=== PATIENT | male | born 1985 | race Caucasian/White ===

== ENCOUNTER 2018-12-11 21:26 | Inpatient (IN) ==
[2018-12-11 22:21] LABS: AGAP 13; ALB/GLOB RATIO 1.1; ALKALINE PHOSPHATASE 38 U/L (32-122); BUN 15 mg/dL (8-22); CALCIUM 9.1 mg/dL (8.8-10.2); CHLORIDE 101 mmol/L (98-107); COSMO 278; CREATININE 0.6 mg/dL (0.7-1.2); ESTIMATED GFR > 60; GLUCOSE 132 mg/dL (70-104); GOT 10 U/L (10-34); GPT 7 U/L (10-44); POTASSIUM 3.9 mmol/L (3.5-5.1); SODIUM 138 mmol/L (136-145); TCO2 24 mmol/L (25-35); TOTAL BILIRUBIN 0.32 mg/dL (0.20-1.00); TOTAL PROTEIN 7.5 g/dL (6.3-8.3)
[2018-12-11 22:24] LABS: BASO# 0.09 X1000 (0.0-0.2); BASO% 0.6 % (0.0-0.8); EOS# 0.12 X1000 (0.0-0.7); EOS% 0.8 % (0.0-10.0); HEMATOCRIT 19.8 % (42.0-52.0); IMM GRAN# 0.04 X1000 (0.0-0.04); IMM GRAN% 0.3 % (0.0-0.5); LYMPH# 1.44 X1000 (1.2-3.4); MCH 15.2 PG (27-31); MCHC 24.7 g/dL (33-37); MCV 61.5 FL (81-99); MONO# 1.29 X1000 (0.11-0.59); MONO% 8.1 % (1.7-9.3); MPV 9.2 FL (7.4-10.4); NEUT# 12.94 X1000 (1.4-6.5); NEUT% 81.2 % (42.2-75.2); PLT 560 X1000 (130-400); RBC 3.22 XMIL (4.7-6.1); RDW 21.7 % (11.5-14.5); WBC 15.92 X1000 (4.8-10.8)
[2018-12-11 22:27] LABS: HEMOGLOBIN 4.9 g/dL (14.0-18.0)
[2018-12-11] MEDS ORDERED: NS 1,000 ML ONE (23:17)
[2018-12-11 23:22] LABS: IRON SATURATION 2 %; TIBC 427 ug/dL
[2018-12-11 23:33] LABS: TOTAL IRON 8 ug/dL (53-167); UNBOUND IRON 419 ug/dL (112-346)
--- NOTE | 2018-12-11 23:57 | PROVIDER DOCUMENTATION ---
This chart was entered by Ellie Maier Scribe, acting as scribe for Marcy Garcia MD. HPI-General Adult - General Chief Complaint: Abnormal Lab[s] Stated Complaint: RETURN PER DR Time Seen by Provider: 12/11/18 21:59 Source: patient Allergies/Adverse Reactions: Patient Allergies Allergy/AdvReac Type Severity Reaction Status Date / Time Penicillins Allergy Mild RASH Verified 12/11/18 23:17 Home Medications: Home Medication List Medication Instructions Recorded Confirmed Last Taken Type Pregabalin [Lyrica] 100 mg PO HS 02/02/12 06/06/18 03/22/17 21:00 History 100 mg Fentanyl 25 Microgm/Hr Patch 25 mcg TD Q72H 03/23/17 06/06/18 03/23/17 09:00 History [Duragesic 25 Microgm/Hr Patch] 25mcg Rivaroxaban [Xarelto] 20 mg PO DAILY 03/23/17 06/06/18 03/23/17 01:00 History 20mg Folic Acid 1 mg PO DAILY #30 tablet 03/29/17 06/06/18 Unknown Rx Sucralfate [Carafate Liquid] 1 gm PO Q6HR #1 udc 03/29/17 06/06/18 Unknown Rx Esomeprazole [Nexium] 40 mg PO DAILY 06/06/18 06/06/18 Unknown History Hydrocodone/Acetaminophen 1 tab PO 4XDAY 06/06/18 06/06/18 Unknown History [Hydrocodone-Acetamin 10-325 mg] - History of Present Illness -Gen Adult Nature of Presenting Problems: pt is a 33 yr old male presenting with report of abnormal labs. pt reports he was seen by PCP this AM and had labs drawn, PCP called this evening and told him his hemoglobin was 4.3 and he needed to come to ER for blood transfusion. pt reports he has not noticed any bleeding, admits he is on Xarelto for bilateral blood clots, followed by Dr Suh. pt is paraplegic and self caths daily. pt does admits hx of same approx 8 yrs ago. pt denies any complaints Location of Pain/Injury: reports: none Pain Radiation: reports: no radiation Quality of Pain: reports: none Onset/Duration: reports: unsure Timing: reports: still present Modifying Factors: improves with: nothing Associated Symptoms: denies: back/neck pain, chest pain, dizziness, fatigue, fever/chills, nausea, shortness of breath, vomiting, weakness Similar Symptoms Previously?: Yes Recently seen or treated by another doctor?: Yes Review of Systems - Adult - REVIEW OF SYSTEMS - ADULT Constitutional: denies: fever, fatique Eyes: reports: no symptoms reported Ears, Nose, Mouth & Throat: reports: no symptoms reported Cardiovascular: denies: chest pain, palpitations, syncope Respiratory: denies: shortness of breath Gastrointestinal: denies: abdominal pain, constipation, diarrhea, nausea, rectal bleeding, vomiting Genitourinary: reports: no symptoms reported Musculoskeletal: reports: no symptoms reported Integumentary: reports: no symptoms reported Neurological: denies: dizziness/vertigo, headache/migraines, syncope Psychiatric: reports: no symptoms reported Endocrine: reports: no symptoms reported Hematologic/Lymphatic: reports: no symptoms reported Allergic/Immunologic: reports: no symptoms reported All Other Systems: Reviewed and Negative Past History - Adult - PAST MEDICAL HISTORY-ADULT Review of Records: reports: Old Records Reviewed, Nursing Assessment Review, Medications Reviewed, Social history reviewed & non-contributory. Major Childhood Illnesses: reports: denies history Cardiovascular: reports: denies history Respiratory: reports: denies history Gastrointestinal: reports: denies history Obstetrical/Gynecological: reports: denies history Genitourinary: reports: denies history Musculoskeletal: reports: denies history Neurological: reports: denies history Endocrine/Immune: reports: denies history Other Conditions: reports: denies history - IMMUNIZATION STATUS Childhood Immunizations: See Nurse Assessment Flu Vaccine: See Nurse Assessment - FAMILY HISTORY Family History: reviewed, not pertinent - SOCIAL HISTORY Smoking: quit greater than 1 year Living Situation: family Physical Exam-General - CONSTITUTIONAL General Appearance: appears well, alert, no apparent distress - EYES Eyes: PERRL/EOMI, pale conjunctivae - HEAD, EARS, NOSE, MOUTH & THROAT HENMT: normocephalic/atraumatic - NECK Neck: supple, normal inspection - RESPIRATORY Respiratory: chest non-tender, lungs clear, normal breath sounds, no respiratory distress, no accessory muscle use - CARDIOVASCULAR Cardiovascular: normal peripheral pulses, tachycardia - GASTROINTESTINAL (ABDOMEN) Abdominal Exam: normal bowel sounds, non tender, soft - MUSCULOSKELETAL Back Exam: normal inspection Extremity: normal inspection - SKIN Integumentary: normal turgor, warm/dry, pallor (pale) - NEUROLOGIC Neurologic: other (RLE weakness) - PSYCHIATRIC Psych/Mental Status: normal mood/affect, oriented x 3 Progress - PLAN OF CARE/RESULTS Progress/Plan/Lab Results: Vital Signs - 8 hr 12/11/18 21:31 Temperature 98.3 F Pulse Rate 121 H Respiratory Rate 16 Blood Pressure 102/56 O2 Sat by Pulse Oximetry 100 Laboratory Results - last 24 hr 12/11/18 12/11/18 21:48 21:48 WBC 15.92 H RBC 3.22 L Hgb 4.9 L* Hct 19.8 L MCV 61.5 L MCH 15.2 L MCHC 24.7 L RDW Std Deviation 21.7 H Plt Count 560 H MPV 9.2 Immature Gran % (Auto) 0.3 Neut % (Auto) 81.2 H Lymph % (Auto) 9.0 L [place] % (Auto) 8.1 Eos % (Auto) 0.8 Baso % (Auto) 0.6 Immature Gran # (Auto) 0.04 Neut # (Auto) 12.94 H Lymph # (Auto) 1.44 [place] # (Auto) 1.29 H Eos # (Auto) 0.12 Baso # (Auto) 0.09 Sodium 138 Potassium 3.9 Chloride 101 Carbon Dioxide 24 L Anion Gap 13 BUN 15 Creatinine 0.6 L Estimated GFR/1.73 m2 > 60 BUN/Creatinine Ratio 25 Glucose 132 H Calculated Osmolality 278 Calcium 9.1 Total Bilirubin 0.32 AST 10 ALT 7 L Alkaline Phosphatase 38 Total Protein 7.5 Albumin 4.0 Globulin 3.5 Albumin/Globulin Ratio 1.1 Orders Category Date Time Status Transfuse .Give-Transfuse Care 12/11/18 22:27 Active CBC WITH ELECTRONIC DIFF [HEME] Stat Lab 12/11/18 21:48 Completed COMPREHENSIVE METABOLIC PANEL [CHEM] Stat Lab 12/11/18 21:48 Completed FERRITIN Stat Lab 12/11/18 22:28 Ordered FOLATE Stat Lab 12/11/18 22:28 Ordered PRBC [LRPC (RED CELLS)] [BBK] Stat Lab 12/11/18 22:27 Uncollected TYPE & SCREEN [BBK] Stat Lab 12/11/18 21:48 Results UIBC W TOTAL IRON [CHEM] Stat Lab 12/11/18 22:28 Uncollected VITAMIN B12 Stat Lab 12/11/18 22:28 Uncollected Result Diagrams: 12/11/18 21:48 12/11/18 21:48 - CONSULTS/PCP/HOSPITALIST Notification #1 *Consult/PCP/Hospitalist*: Dr Acevedo Time Discussed: 22:45 Reason/Comments: discussed plan of care for pt admit Consult Disposition: Admit Departure - Departure Date of Disposition Decision: 12/11/18 Time of Disposition Decision: 22:45 DIAGNOSIS: Acute anemia Disposition: ADMITTED INPATIENT 09 Certified Medical Emergency: Emergent Condition: Stable Referrals and Follow-Ups: Ruth Toussaint MD [Primary Care Provider] - - Critical Care Note This patient required my direct & personal management of CC.: Yes Total Time (mins): 35 Critical Care Statement: This patient required my direct personal management to treat or rule out processes, the absence of which, could potentiallly result in sudden, clinically significant life or limb threatening deterioration. Attestation - Physician/ CJ Attestation Patient care was provided by Advanced Practice Provider:: No The physician spent face to face time with patient:: Yes Advanced Practice Provider documentation review:: Supervising physician onsite and consulted in the evaluation and care of this patient. The physician did have a face to face encounter with the patient. This chart was documented by the indicated scribe, (Ellie Maier Scribe) and accurately reflects the services I performed and decisions made by me, Marcy Garcia MD, as attested by the provider's signature.
[2018-12-12] MEDS ORDERED: ZOFRAN IV PRN (01:13)
[2018-12-12] MEDS ORDERED: VANCOMYCIN IV PER PHARMACY MISC SCH (01:13)
[2018-12-12 01:53] LABS: URINE SOURCE CATH
[2018-12-12 02:05] LABS: BILIRUBIN URINE NEGATIVE (NEGATIVE); BLOOD URINE SMALL (NEGATIVE); COLOR YELLOW; GLUCOSE URINE NEGATIVE (NEGATIVE); KETONE URINE NEGATIVE (NEGATIVE); LEUKOCYTES URINE SMALL (NEGATIVE); NITRITE URINE POSITIVE (NEGATIVE); PROTEIN URINE TRACE mg/dL (NEGATIVE); SP GRAVITY URINE 1.029; TURBIDITY URINE CLEAR (CLEAR); UROBILINOGEN URINE 3 mg/dL (NORMAL)
[2018-12-12 02:07] LABS: UR EPITHELIAL CELLS <10 /HPF (<10); URINE BACTERIA 4+ /HPF; URINE RBC <10 /HPF (<10)
[2018-12-12] MEDS: MAXIPIME 1 GM in NS 50 ML IV SCH ×2 (02:16→12:20)
[2018-12-12] MEDS: PROTONIX IV SCH ×2 (02:17→12:21)
[2018-12-12] MEDS: MORPHINE IV PRN ×5 (02:17→22:12)
[2018-12-12] MEDS ORDERED: NS 250 ML ONE ×2 (02:19→20:13)
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
[2018-12-12] MEDS ORDERED: VANCOMYCIN 2,450 MG in NS 500 ML IV ONE (03:00)
[2018-12-12 06:20] LABS: BASO# 0.14 X1000 (0.0-0.2); BASO% 1.1 % (0.0-0.8); EOS# 0.36 X1000 (0.0-0.7); EOS% 2.7 % (0.0-10.0); HEMATOCRIT 23.6 % (42.0-52.0); HEMOGLOBIN 6.3 g/dL (14.0-18.0); IMM GRAN# 0.03 X1000 (0.0-0.04); IMM GRAN% 0.2 % (0.0-0.5); LYMPH# 2.47 X1000 (1.2-3.4); LYMPH% 18.8 % (20.5-51.1); MCH 17.7 PG (27-31); MCHC 26.7 g/dL (33-37); MCV 66.3 FL (81-99); MONO# 1.44 X1000 (0.11-0.59); MONO% 10.9 % (1.7-9.3); MPV 9.1 FL (7.4-10.4); NEUT# 8.73 X1000 (1.4-6.5); NEUT% 66.3 % (42.2-75.2); PLT 472 X1000 (130-400); RBC 3.56 XMIL (4.7-6.1); RDW 24.6 % (11.5-14.5); WBC 13.17 X1000 (4.8-10.8)
[2018-12-12 06:25] LABS: URINE SOURCE CATH
[2018-12-12 06:28] LABS: BILIRUBIN URINE NEGATIVE (NEGATIVE); BLOOD URINE TRACE (NEGATIVE); COLOR YELLOW; GLUCOSE URINE NEGATIVE (NEGATIVE); KETONE URINE NEGATIVE (NEGATIVE); LEUKOCYTES URINE NEGATIVE (NEGATIVE); NITRITE URINE POSITIVE (NEGATIVE); PROTEIN URINE TRACE mg/dL (NEGATIVE); SP GRAVITY URINE 1.028; TURBIDITY URINE CLEAR (CLEAR); UROBILINOGEN URINE 2 mg/dL (NORMAL)
[2018-12-12 06:30] LABS: UR EPITHELIAL CELLS <10 /HPF (<10); URINE BACTERIA NEGATIVE /HPF; URINE RBC <10 /HPF (<10); URINE WBC <10 /HPF (<10)
[2018-12-12 06:34] LABS: AGAP 8; ALB/GLOB RATIO 1.2; ALBUMIN 3.6 g/dL (3.5-5.0); ALKALINE PHOSPHATASE 35 U/L (32-122); BUN 14 mg/dL (8-22); CHLORIDE 99 mmol/L (98-107); COSMO 262; CREATININE 0.6 mg/dL (0.7-1.2); ESTIMATED GFR > 60; GLUCOSE 103 mg/dL (70-104); GOT 9 U/L (10-34); GPT 7 U/L (10-44); POTASSIUM 3.6 mmol/L (3.5-5.1); SODIUM 130 mmol/L (136-145); TCO2 23 mmol/L (25-35); TOTAL BILIRUBIN 0.72 mg/dL (0.20-1.00); TOTAL PROTEIN 6.6 g/dL (6.3-8.3)
--- NOTE | 2018-12-12 07:17 | Diag Imaging Result Doc PS360 ---
EXAM: CHEST-PORTABLE INDICATION: fever TECHNIQUE: One view COMPARISON: 03/27/2017 FINDINGS: The lungs are grossly clear. There is no discrete pleural fluid collection or pneumothorax. The cardiomediastinal silhouette and central vasculature are grossly unremarkable. IMPRESSION: No evidence of acute pathology by plain radiograph. Electronically signed by Brody Meneses 12/12/2018 7:15 AM
--- NOTE | 2018-12-12 07:26 | Diag Imaging Result Doc PS360 ---
EXAM: FOOT COMPLETE RIGHT INDICATION: R/o osteo TECHNIQUE: 3 views COMPARISON: None. FINDINGS: The bones are diffusely osteopenic. No discrete bony erosions are identified to indicate osteomyelitis by plain radiograph on the current study. There is no discrete fracture, dislocation, or significant intrinsic osseous lesion. There is soft tissue edema around the foot. Consider cellulitis. IMPRESSION: Osteopenia and soft tissue edema but no discrete bony erosion to indicate osteomyelitis by plain radiograph. Electronically signed by Brody Meneses 12/12/2018 7:24 AM
--- NOTE | 2018-12-12 07:31 | Diag Imaging Result Doc PS360 ---
EXAM: FOOT COMPLETE LEFT INDICATION: r/o osteo TECHNIQUE: 3 views COMPARISON: None. FINDINGS: The bones are diffusely osteopenic. No discrete focal bony erosion is identified to indicate osteomyelitis by plain radiograph on the current study. There is no discrete fracture, dislocation, or significant intrinsic osseous lesion, otherwise. There is soft tissue edema around the foot. IMPRESSION: Soft tissue edema and diffuse osteopenia but nothing that would necessarily indicate osteomyelitis by plain radiograph on the current study. Electronically signed by Brody Meneses 12/12/2018 7:29 AM
--- NOTE | 2018-12-12 07:33 | EKG Report ---
Test Performed on : 12/12/2018 06:46:01 AM Test Reason : chest pain Blood Pressure : / mmHG Vent. Rate : 101 BPM Atrial Rate : 101 BPM P-R Int : 116 ms QRS Dur : 088 ms QT Int : 354 ms P-R-T Axes : 041 048 008 degrees QTc Int : 459 ms Sinus tachycardia. Otherwise normal ECG When compared with ECG of 23-MAR-2017 15:04, No significant change was found Confirmed by Freda LINDER, Ricco Damian ([id number]) on 12/13/2018 8:58:26 AM
--- NOTE | 2018-12-12 07:47 | Diag Imaging Result Doc PS360 ---
EXAM: CHEST-PORTABLE INDICATION: FU TECHNIQUE: One view COMPARISON: 12/12/2018 FINDINGS: The lungs remain grossly clear. No new consolidation is identified. Cardiac silhouette is stable. IMPRESSION: Stable chest. Electronically signed by Brody Meneses 12/12/2018 7:44 AM
[2018-12-12] MEDS ORDERED: NS 500 ML IV ONE (08:06)
[2018-12-12] MEDS: SANTYL OINT TOP SCH (12:20)
[2018-12-12] MEDS: SODIUM CHLORIDE 0.9% INJ SCH (12:21)
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
[2018-12-12 12:40] LABS: HEMOGLOBIN 6.6 g/dL (14.0-18.0)
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
[2018-12-12] MEDS ORDERED: DIPRIVAN 1% ONE (13:35)
--- NOTE | 2018-12-12 14:14 | ENDOSCOPY OPERATIVE NOTE ---
[facility] ENDOSCOPY OPERATIVE NOTE , EGD PROCEDURE REPORT PATIENT: Darci Burnette ADMISSION DATE: 12/12/2018 MR#: [id number] : 1985 PROCEDURE DATE: 12/12/2018 SURGEON: Barrera Booker MD STATUS: inpatient VARNISH SUPERVISOR: Yari Clrake and Mary Manzano PREOPERATIVE DIAGNOSIS: The patient is a 33 yr old male here for an EGD due to hematemesis and acute post hemorrhagic anemia. PROCEDURE PERFORMED: EGD w/ biopsy MEDICATIONS: Per Anesthesia TOPICAL ANESTHETIC: none CONSENT: The patient understands the risks and benefits of the procedure and understands that these r isks include, but are not limited to: sedation, allergic reaction, infection, perforation and/or bleeding. Alternative means of evaluation and treatment include, among others: physical exam, x-rays, and/or surgical intervention. The patient elects to proceed with this endoscopic procedure. HISORY AND PHYSICAL: 12/12/2018 DESCRIPTION OF PROCEDURE: During intra-op preparation period all mechanical and medical equipment was checked for proper function. Hand hygiene and appropriate measures for infection prevention was taken. After the risks, benefits and alternatives of the procedure were thoroughly explained, Informed consent was verified, confirmed and timeout was successfully executed by the treatment team. The patient was anesthetized with topical anesthesia and the [id number] ([id number]) endoscope was introduced through the mouth and advanced to the second portion of the duoden um. Retroflexion was performed in the stomach and revealed no abnormalities. The gastroscope was then slowly withdraw n and removed. ESOPHAGUS: Severe reflux esophagitis was found 29 cm from the incisors. Esophagitis was LA Class D: Mucosal breaks involving more than 75% of esophageal circumference. Multiple biopsies were performed using cold for ceps. Sample sent for histology. The esophagus was otherwise normal. STOMACH: The mucosa of the stomach appeared normal. DUODENUM: The duodenal mucosa showed no abnormalities. SPECIMENS REMOVED: No ADVERSE EVENTS: There were no complications. POSTOPERATIVE DIAGNOSIS: 1. Reflux esophagitis 29 cm from the incisors; multiple biopsies were p erformed 2. The esophagus was otherwise normal 3. The mucosa of the stomach appeared normal 4. The duodenal mucosa showed no abnormalities RECOMMENDATIONS: 1. Resume pre-procedure medications 2. Follow-up biopsy results in 2 weeks 3. Follow up with referring physician 4. Transfer to ICU REPEAT EXAM: Barrera Booker MD eSigned: Barrera Bokoer MD 12/12/2018 2:13 PM cc: Ruth Toussaint MD PATIENT NAME: Darci Burnette MR#: [id number]
[2018-12-12] MEDS: CARAFATE LIQUID PO SCH (16:18)
[2018-12-12 18:17] LABS: HEMOGLOBIN 6.4 g/dL (14.0-18.0)
[2018-12-12] MEDS: FOLIC ACID PO SCH (20:08)
[2018-12-12] MEDS: LYRICA PO SCH (20:08)
[2018-12-12] MEDS: OFIRMEV 1000 MG/ISOTONIC SOLN 1,000 MG/100 ML BOTTLE IV PRN (20:16)
[2018-12-12] MEDS ORDERED: LYRICA PO SCH (21:00)
[2018-12-12 21:21] LABS: HEMOGLOBIN 6.5 g/dL (14.0-18.0)
[2018-12-12] MEDS: VANCOMYCIN 1,800 MG in NS 500 ML IV SCH (21:53)
[2018-12-12] MEDS: NS 500 ML IV ONE (22:02)
[2018-12-13] MEDS: PROTONIX IV SCH ×2 (01:14→14:08)
[2018-12-13] MEDS: MAXIPIME 1 GM in NS 50 ML IV SCH (01:14)
[2018-12-13] MEDS: MORPHINE IV PRN ×5 (03:31→20:45)
[2018-12-13] MEDS: OFIRMEV 1000 MG/ISOTONIC SOLN 1,000 MG/100 ML BOTTLE IV PRN ×2 (03:46→11:00)
[2018-12-13] MEDS: CARAFATE LIQUID PO SCH ×3 (06:07→16:37)
[2018-12-13 07:07] LABS: RETIC% 1.36 % (0.8-2.1); RETIC-HE 16.5 PG (28.2-36.6)
[2018-12-13 07:10] LABS: AGAP 12; ALB/GLOB RATIO 1.2; ALBUMIN 3.8 g/dL (3.5-5.0); ALKALINE PHOSPHATASE 37 U/L (32-122); BUN 11 mg/dL (8-22); CALCIUM 8.4 mg/dL (8.8-10.2); CHLORIDE 101 mmol/L (98-107); COSMO 271; CREATININE 0.6 mg/dL (0.7-1.2); ESTIMATED GFR > 60; GLUCOSE 101 mg/dL (70-104); GOT 11 U/L (10-34); GPT 7 U/L (10-44); POTASSIUM 3.5 mmol/L (3.5-5.1); SODIUM 136 mmol/L (136-145); TCO2 23 mmol/L (25-35); TOTAL PROTEIN 7.1 g/dL (6.3-8.3)
[2018-12-13 07:13] LABS: HEMATOCRIT 25.3 % (42.0-52.0); MCH 19.2 PG (27-31); MCHC 27.7 g/dL (33-37); MCV 69.3 FL (81-99); MPV 9.7 FL (7.4-10.4); RBC 3.65 XMIL (4.7-6.1); RDW 26.2 % (11.5-14.5); WBC 8.08 X1000 (4.8-10.8)
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
[2018-12-13] MEDS: LYRICA PO SCH ×2 (08:11→20:42)
[2018-12-13] MEDS: SANTYL OINT TOP SCH (08:11)
[2018-12-13] MEDS: FOLIC ACID PO SCH ×2 (08:11→20:42)
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
[2018-12-13] MEDS: SODIUM CHLORIDE 0.9% INJ SCH (14:08)
[2018-12-13] MEDS: MAXIPIME 2 GM in NS 100 ML IV SCH (14:08)
[2018-12-13] MEDS: VANCOMYCIN 1,800 MG in NS 500 ML IV SCH (15:49)
--- NOTE | 2018-12-13 16:19 | Diag Imaging Result Doc PS360 ---
EXAM: 3 PHASE BONE SCAN INDICATION: bilateral foot osteomyelitis TECHNIQUE: 25.1 mCi of technetium 99 MDP was administered and three phase images of the feet were obtained in usual fashion after administration. COMPARISON: Whole body bone scan dated 07/22/2013 FINDINGS: There is no abnormal uptake identified on blood flow images. There is mild increased uptake at the third tarsometatarsal joint on the right, at the mid foot, and at the tibiotalar joint on the right on both blood pool and delayed images. There is milder increased uptake at the base of the first metatarsal and at the midfoot on the left on blood pool and delayed images. This is nonspecific and could be degenerative. However, mild osteomyelitis is not excluded. Consider correlation with MRI. IMPRESSION: Mild increased uptake involving both feet on blood pool and delayed images as detailed above. Electronically signed by Brody Meneses 12/13/2018 4:17 PM
[2018-12-13 19:40] LABS: HEMATOCRIT 23.2 % (42.0-52.0); HEMOGLOBIN 6.1 g/dL (14.0-18.0)
[2018-12-13] MEDS ORDERED: NS 500 ML ONE (22:23)
[2018-12-14] MEDS: PROTONIX IV SCH ×2 (01:07→12:13)
[2018-12-14] MEDS: MORPHINE IV PRN ×6 (01:14→22:09)
[2018-12-14] MEDS: MAXIPIME 2 GM in NS 100 ML IV SCH ×2 (02:37→19:38)
[2018-12-14 06:18] LABS: BASO# 0.11 X1000 (0.0-0.2); EOS# 0.31 X1000 (0.0-0.7); EOS% 5.7 % (0.0-10.0); HEMATOCRIT 29.1 % (42.0-52.0); HEMOGLOBIN 8.2 g/dL (14.0-18.0); IMM GRAN# 0.02 X1000 (0.0-0.04); IMM GRAN% 0.4 % (0.0-0.5); LYMPH# 1.28 X1000 (1.2-3.4); LYMPH% 23.4 % (20.5-51.1); MCHC 28.2 g/dL (33-37); MCV 74.4 FL (81-99); MONO# 1.01 X1000 (0.11-0.59); MONO% 18.5 % (1.7-9.3); MPV 9.7 FL (7.4-10.4); NEUT# 2.73 X1000 (1.4-6.5); PLT 339 X1000 (130-400); RBC 3.91 XMIL (4.7-6.1); RDW 27.6 % (11.5-14.5); WBC 5.46 X1000 (4.8-10.8)
[2018-12-14 06:32] LABS: AGAP 11; ALBUMIN 3.2 g/dL (3.5-5.0); ALKALINE PHOSPHATASE 30 U/L (32-122); BUN 9 mg/dL (8-22); CHLORIDE 103 mmol/L (98-107); COSMO 273; CREATININE 0.5 mg/dL (0.7-1.2); ESTIMATED GFR > 60; GLUCOSE 104 mg/dL (70-104); GOT 9 U/L (10-34); GPT 7 U/L (10-44); POTASSIUM 3.8 mmol/L (3.5-5.1); SODIUM 137 mmol/L (136-145); TCO2 23 mmol/L (25-35); TOTAL BILIRUBIN 0.41 mg/dL (0.20-1.00); TOTAL PROTEIN 6.5 g/dL (6.3-8.3)
[2018-12-14] MEDS: CARAFATE LIQUID PO SCH ×3 (07:23→16:44)
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
[2018-12-14] MEDS: FOLIC ACID PO SCH ×2 (08:14→20:58)
[2018-12-14] MEDS: LYRICA PO SCH ×2 (08:14→20:58)
[2018-12-14] MEDS: SANTYL OINT TOP SCH (08:20)
[2018-12-14] MEDS ORDERED: VANCOMYCIN 1,800 MG in NS 250 ML IV SCH (11:00)
[2018-12-14] MEDS: SODIUM CHLORIDE 0.9% INJ SCH (12:13)
[2018-12-14] MEDS: LEVAQUIN PO SCH (15:04)
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
[2018-12-15] MEDS: SODIUM CHLORIDE 0.9% INJ SCH ×2 (01:59→12:40)
[2018-12-15] MEDS: PROTONIX IV SCH ×2 (01:59→12:40)
[2018-12-15] MEDS: MORPHINE IV PRN ×5 (02:04→20:26)
[2018-12-15] MEDS: CARAFATE LIQUID PO SCH ×3 (06:25→16:45)
[2018-12-15 07:58] LABS: BASO# 0.08 X1000 (0.0-0.2); BASO% 1.3 % (0.0-0.8); EOS# 0.31 X1000 (0.0-0.7); HEMATOCRIT 29.9 % (42.0-52.0); HEMOGLOBIN 8.4 g/dL (14.0-18.0); LYMPH# 1.46 X1000 (1.2-3.4); LYMPH% 23.5 % (20.5-51.1); MCHC 28.1 g/dL (33-37); MCV 74.8 FL (81-99); MONO# 0.74 X1000 (0.11-0.59); MONO% 11.9 % (1.7-9.3); MPV 9.6 FL (7.4-10.4); NEUT# 3.62 X1000 (1.4-6.5); NEUT% 58.3 % (42.2-75.2); PLT 364 X1000 (130-400); RDW 28.6 % (11.5-14.5); WBC 6.21 X1000 (4.8-10.8)
[2018-12-15 08:04] LABS: AGAP 11; BUN 12 mg/dL (8-22); CALCIUM 8.5 mg/dL (8.8-10.2); CHLORIDE 103 mmol/L (98-107); COSMO 273; CREATININE 0.6 mg/dL (0.7-1.2); ESTIMATED GFR > 60; GLUCOSE 90 mg/dL (70-104); MAGNESIUM 2.1 mg/dL (1.5-2.7); POTASSIUM 4.2 mmol/L (3.5-5.1); SODIUM 137 mmol/L (136-145); TCO2 23 mmol/L (25-35)
[2018-12-15] MEDS: LYRICA PO SCH ×2 (09:12→20:25)
[2018-12-15] MEDS: LEVAQUIN PO SCH (09:12)
[2018-12-15] MEDS: FOLIC ACID PO SCH ×2 (09:12→20:25)
[2018-12-15] MEDS ORDERED: LASIX IV ONE (12:52)
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
[2018-12-15] MEDS: SANTYL OINT TOP SCH (16:31)
[2018-12-15] MEDS: PROTONIX PO SCH (20:25)
[2018-12-16] MEDS: MORPHINE IV PRN ×6 (00:40→23:50)
[2018-12-16] MEDS: CARAFATE LIQUID PO SCH ×3 (06:05→16:27)
[2018-12-16 07:31] LABS: AGAP 11; BUN 15 mg/dL (8-22); CALCIUM 8.6 mg/dL (8.8-10.2); CHLORIDE 101 mmol/L (98-107); COSMO 280; CREATININE 0.6 mg/dL (0.7-1.2); ESTIMATED GFR > 60; GLUCOSE 95 mg/dL (70-104); POTASSIUM 4.4 mmol/L (3.5-5.1); SODIUM 140 mmol/L (136-145); TCO2 28 mmol/L (25-35)
[2018-12-16 07:41] LABS: BASO# 0.11 X1000 (0.0-0.2); BASO% 1.9 % (0.0-0.8); EOS# 0.29 X1000 (0.0-0.7); EOS% 4.9 % (0.0-10.0); HEMATOCRIT 32.6 % (42.0-52.0); HEMOGLOBIN 9.1 g/dL (14.0-18.0); LYMPH# 1.61 X1000 (1.2-3.4); LYMPH% 27.2 % (20.5-51.1); MCHC 27.9 g/dL (33-37); MCV 75.1 FL (81-99); MONO# 0.56 X1000 (0.11-0.59); MONO% 9.4 % (1.7-9.3); MPV 9.7 FL (7.4-10.4); NEUT# 3.36 X1000 (1.4-6.5); NEUT% 56.6 % (42.2-75.2); PLT 426 X1000 (130-400); RBC 4.34 XMIL (4.7-6.1); RDW 29.5 % (11.5-14.5); WBC 5.93 X1000 (4.8-10.8)
[2018-12-16] MEDS: SANTYL OINT TOP SCH (09:22)
[2018-12-16] MEDS: FOLIC ACID PO SCH ×2 (09:22→19:59)
[2018-12-16] MEDS: LEVAQUIN PO SCH (09:22)
[2018-12-16] MEDS: PROTONIX PO SCH ×2 (09:22→19:59)
[2018-12-16] MEDS: LYRICA PO SCH ×2 (09:25→19:59)
[2018-12-16] MEDS ORDERED: LASIX IV ONE (10:53)
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
[2018-12-17] MEDS: CARAFATE LIQUID PO SCH ×2 (06:05→10:14)
[2018-12-17] MEDS: MORPHINE IV PRN ×2 (06:06→10:13)
[2018-12-17 07:39] LABS: HEMATOCRIT 31.8 % (42.0-52.0); HEMOGLOBIN 8.9 g/dL (14.0-18.0)
[2018-12-17 07:50] LABS: AGAP 11; BUN 20 mg/dL (8-22); CALCIUM 7.9 mg/dL (8.8-10.2); CHLORIDE 102 mmol/L (98-107); COSMO 282; CREATININE 0.7 mg/dL (0.7-1.2); ESTIMATED GFR > 60; GLUCOSE 99 mg/dL (70-104); POTASSIUM 4.2 mmol/L (3.5-5.1); SODIUM 140 mmol/L (136-145); TCO2 27 mmol/L (25-35)
[2018-12-17] MEDS: LEVAQUIN PO SCH (10:01)
[2018-12-17] MEDS: PROTONIX PO SCH (10:01)
[2018-12-17] MEDS: FOLIC ACID PO SCH (10:01)
[2018-12-17] MEDS: LYRICA PO SCH (10:02)
[2018-12-17] MEDS: SANTYL OINT TOP SCH (11:46)
[2018-12-17 13:21] VITALS: BP 135/71
--- NOTE | 2018-12-17 14:26 | GASTROENTEROLOGY PROGRESS NOTE ---
DATE: 12/17/2018 SUBJECTIVE: Patient denies complaints. There has been no further evidence of active GI bleeding. He had an EGD on 12/12/2018 that showed severe esophagitis. Patient has had attempted colonoscopies in the past but he has been unable to drink the colon prep and get clean for the colonoscopy. OBJECTIVE: Vital Signs: Temperature 97.9 degrees, pulse 78, blood pressure 106/68. LABORATORY: Hemoglobin 8.9, hematocrit 31.8. ASSESSMENT AND PLAN: 1. Recent gastrointestinal bleed. Patient has received packed red blood cells. Hemoglobin and hematocrit is slightly lower today but stable. No evidence of active GI bleeding. EGD showed severe esophagitis. Recommend to continue his proton pump inhibitor and Carafate. 2. Cellulitis, edema lower extremity. Following with Infectious Disease on antibiotics. 3. Urinary tract infection on antibiotics. 4. History of deep venous thrombosis and anticardiolipin syndrome. Follow recommendations regarding his anticoagulation medication, Xarelto. Following recommendations from Hematology. 5. We will continue to follow. I believe he may be discharged in the next day or so. Recommend he follow up with us as an outpatient. 6. I have discussed this case with Dr. Booker. Dictated by MICHEAL Sargent for Barrera Booker MD cc: MICHEAL Corea MD
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
== END 2018-12-17 15:42 | disposition home health service (06) | DRG 392 ==
LOC: ED 21:26 → ICU 12-12 00:06 → SUATTDRO 12-12 00:06 → 3N 12-14 09:43
PROVIDERS: ATTEND Internal Medicine